=== PATIENT | female | born 1940 | race Caucasian/White ===

== ENCOUNTER 2020-11-06 21:31 | Emergency (ER) | payer MEDICARE ==
[~2020-11-06 21:31] MED LIST: AUGMENTIN 875-1 EACH PO; BACTRIM DS TAB1 EACH PO; BUSPIRONE HCL15 MG PO; CLONAZEPAM 1MG T1 MG PO; CLONAZEPAM0.5 MG PO; COZAAR50 MG PO; ELIQUIS5 MG PO; ESBRIET801 MG PO; FEOSOL325 MG PO; LASIX20 MG PO; LEVAQUIN750 MG PO; LEXAPRO 10MG TA10 MG PO; MACROBID100 MG PO; MEDROL 4MG DOSEP4 MG PO; METFORMIN HCL500 MG PO; NYSTATIN 112 TSP/BTL PO; PREDNISONE 20MG20 MG PO; SPORANOX 100MG100 MG PO; SYNTHROID100 MCG PO
[2020-11-06 22:10] LABS: BASOPHIL 0.7 % (0-2); EOSINOPHIL 4.2 % (0-7); HCT 30.6 % (37.0-47.0); LYMPHOCYTE 19.3 % (15-48); MCH 23.9 pg (25.0-31.0); MCHC 29.4 g/dL (32.0-36.0); MCV 81.2 fL (78.0-100.0); MONOCYTE 8.3 % (0-12); NEUTROPHIL 67.4 % (41-80); NRBC 0; PLT 276 K/uL (150-400); RBC 3.77 M/uL (4.20-5.40); RDW 15.7 % (11.5-14.0); WBC 8.6 K/uL (4.0-10.5)
[2020-11-06 22:26] LABS: ALBUMIN 2.6 g/dL (3.4-5.0); BILIRUBIN - TOTAL 0.2 mg/dL (0.2-1.0); CREATININE 0.41 mg/dL (0.51-0.95); POTASSIUM 3.8 mmol/L (3.5-5.1); TOTAL PROTEIN 6.6 g/dL (6.4-8.2)
[2020-11-06 22:30] LABS: LACTIC ACID 0.8 mmol/L (0.4-1.9)
[2020-11-06 22:56] LABS: CORONAVIRUS 2019 SARS-COV-2 NEGATIVE (NEGATIVE); INFLUENZA A NAA NEGATIVE (NEGATIVE)
== END 2020-11-07 16:40 | disposition other institution (70) ==
LOC: FER 21:31
PROVIDERS: Emergency Medicine
DX: J96.91 Respiratory failure, unspecified with hypoxia (principal); J84.10 Pulmonary fibrosis, unspecified; J44.1 Chronic obstructive pulmonary disease with (acute) exacerbation; Z86.711 Personal history of pulmonary embolism; Z88.5 Allergy status to narcotic agent; Z20.822 Contact with and (suspected) exposure to COVID-19
CPT/HCPCS: 36415; 36600; 71045; 71275; 80053; 82803; 83605; 83880; 84484; 85025; 85379; 93005; 94640; 94664; J2060; J2930; Q9967; U0002

== ENCOUNTER 2020-12-09 17:40 | Emergency (ER) | payer MEDICARE ==
[2020-12-09 18:24] LABS: BASOPHIL 0.4 % (0-2); EOSINOPHIL 1.3 % (0-7); HCT 35.4 % (37.0-47.0); HGB 10.7 g/dl (12.5-16.0); LYMPHOCYTE 22.6 % (15-48); MCH 25.5 pg (25.0-31.0); MCHC 30.2 g/dL (32.0-36.0); MCV 84.5 fL (78.0-100.0); MPV 9.4 fL (6.0-9.5); NEUTROPHIL 68.3 % (41-80); NRBC 0; PLT 190 K/uL (150-400); RBC 4.19 M/uL (4.20-5.40); RDW 23.4 % (11.5-14.0); WBC 7.2 K/uL (4.0-10.5)
[2020-12-09 18:57] LABS: ALBUMIN 2.8 g/dL (3.4-5.0); BILIRUBIN - TOTAL 0.2 mg/dL (0.2-1.0); BUN/CREAT RATIO (CALC) 51.1 RATIO; CREATININE 0.45 mg/dL (0.51-0.95); GLOBULIN (CALCULATION) 3.6 g/dL; POTASSIUM 3.5 mmol/L (3.5-5.1); TOTAL PROTEIN 6.4 g/dL (6.4-8.2)
[2020-12-09 19:54] LABS: BILIRUBIN NEGATIVE (NEGATIVE); BLOOD NEGATIVE Ery/uL (NEGATIVE); CLARITY CLEAR (CLEAR); COLOR YELLOW (YELLOW); GLUCOSE (U) NORMAL (NORMAL); LEUKOCYTES NEGATIVE Leu/uL (NEGATIVE); NITRITE NEGATIVE (NEGATIVE); PROTEIN NEGATIVE (NEGATIVE); UROBILINOGEN 0.2 mg/dL (0.2-1.0)
== END 2020-12-09 20:35 | disposition home or self-care (01) ==
LOC: FER 17:40
PROVIDERS: Emergency Medicine
DX: J84.10 Pulmonary fibrosis, unspecified (principal); R60.0 Localized edema; R00.0 Tachycardia, unspecified; I50.9 Heart failure, unspecified; Z87.09 Personal history of other diseases of the respiratory system; Z88.5 Allergy status to narcotic agent; Z79.899 Other long term (current) drug therapy; Z79.01 Long term (current) use of anticoagulants
CPT/HCPCS: 36415; 36600; 80053; 81003; 82803; 83605; 83880; 84145; 84484; 85025; 87040; 87088; 93005; J1940; J2060

== ENCOUNTER 2021-01-20 02:30 | Inpatient (IN) | payer MEDICARE ==
[2021-01-20 03:11] LABS: INR 1.12 (0.9-1.2); PROTHROMBIN TIME 13.7 SECONDS (11.4-13.6)
[2021-01-20 03:12] LABS: ALBUMIN 2.8 g/dL (3.4-5.0); BILIRUBIN - TOTAL 0.3 mg/dL (0.2-1.0); CREATININE 0.5 mg/dL (0.51-0.95); GLOBULIN (CALCULATION) 4.8 g/dL; PTT 29.7 SECONDS (22.2-34.7); TOTAL PROTEIN 7.6 g/dL (6.4-8.2)
[2021-01-20 03:13] LABS: EOSINOPHIL 6.3 % (0-7); HCT 40.4 % (37.0-47.0); HGB 12.6 g/dl (12.5-16.0); MCH 26.1 pg (25.0-31.0); MCHC 31.2 g/dL (32.0-36.0); MCV 83.6 fL (78.0-100.0); MONOCYTE 6.8 % (0-12); MPV 9.7 fL (6.0-9.5); NEUTROPHIL 63.6 % (41-80); NRBC 0; PLT 331 K/uL (150-400); RBC 4.83 M/uL (4.20-5.40); RDW 21.1 % (11.5-14.0); WBC 10.2 K/uL (4.0-10.5)
--- NOTE | 2021-01-20 05:32 | NUR ---
PATIENT ARRIVED TO FLOOR VIA [facility] FAMILY AT BEDSIDE. BED LOCKED AND IN LOW POSITION. CALL LIGHT IN REACH.
[2021-01-20] MEDS ORDERED: REVATIO 20MG TA20 MG PO (05:46)
[2021-01-20] MEDS ORDERED: COLACE100 MG PO (05:47)
[2021-01-20 06:24] LABS: MAGNESIUM 1.8 mg/dL (1.8-2.4); PHOSPHORUS 3.5 mg/dL (2.6-4.7)
--- NOTE | 2021-01-20 10:31 | NUR ---
01/20/21 Ms. Carvalho lives with her son, Luther Carvalho ([phone]). She is followed by A . Ms. Carvalho has a trilogy, 02, rollator, w/c, 3in1, and hospital bed. Her son prepares meals and manages the household. Her daughter visits the home every other day and assist with bathing. - reports to be unable to afford the inhaler. - Her son, Alfredo Carvalho, reports to be working with [employer] to get a pb to pay the co-payment for the inhaler, Navaso. Mr. Carvalho reports that a FISCAL ANALYST will be coming to the home through [employer] (referred by her insurance).
[2021-01-21 05:56] LABS: BASOPHIL 0.4 % (0-2); EOSINOPHIL 2.1 % (0-7); HCT 35.2 % (37.0-47.0); HGB 10.6 g/dl (12.5-16.0); LYMPHOCYTE 24.3 % (15-48); MCH 25.4 pg (25.0-31.0); MCHC 30.1 g/dL (32.0-36.0); MCV 84.4 fL (78.0-100.0); MONOCYTE 9.3 % (0-12); MPV 9.6 fL (6.0-9.5); NEUTROPHIL 63.6 % (41-80); NRBC 0; PLT 325 K/uL (150-400); RBC 4.17 M/uL (4.20-5.40); RDW 20.5 % (11.5-14.0); WBC 9.5 K/uL (4.0-10.5)
[2021-01-21 07:24] LABS: ALBUMIN 2.5 g/dL (3.4-5.0); BILIRUBIN - TOTAL 0.2 mg/dL (0.2-1.0); BUN/CREAT RATIO (CALC) 29.1 RATIO; CREATININE 0.55 mg/dL (0.51-0.95); GLOBULIN (CALCULATION) 3.8 g/dL; POTASSIUM 4.4 mmol/L (3.5-5.1); TOTAL PROTEIN 6.3 g/dL (6.4-8.2)
--- NOTE | 2021-01-21 12:49 | NUR ---
PT O2 TITRATED DOWN PER MD BY RESPIRATORY, PT DESATTING INTO MID 80S WHILE EATING LUNCH. [facility] THERAPY CALLED AND COMING TO TURN FIO2 BACK UP ON PT VAPOTHERM. PT REMAINS IN AFIB WITH A RATE OF 97.
--- NOTE | 2021-01-22 15:12 | NUR ---
PT ALERT AND ORIENTED, SLEEPING OFF AND ON MOST OF THE DAY. PT MANUALLY TURNED TO EITHER SIDE WHILE RESTING, STATES SHE FEELS WEAK AND DIZZY AT TIMES. PT ABLE TO TURN SELF WHEN SHE IS FEELING MORE AWAKE. REDDENED COCCYX, BARRIER OINTMENT APPLIED.
[2021-01-23 06:31] LABS: BUN/CREAT RATIO (CALC) 35.7 RATIO; CREATININE 0.56 mg/dL (0.51-0.95); POTASSIUM 4.4 mmol/L (3.5-5.1)
[2021-01-23 06:37] LABS: BASOPHIL 0.4 % (0-2); EOSINOPHIL 0.2 % (0-7); HCT 31.2 % (37.0-47.0); HGB 9.6 g/dl (12.5-16.0); LYMPHOCYTE 19.5 % (15-48); MCH 26.1 pg (25.0-31.0); MCHC 30.8 g/dL (32.0-36.0); MCV 84.8 fL (78.0-100.0); MONOCYTE 9.6 % (0-12); MPV 9.8 fL (6.0-9.5); NEUTROPHIL 69.9 % (41-80); NRBC 0; PLT 295 K/uL (150-400); RBC 3.68 M/uL (4.20-5.40); RDW 20.2 % (11.5-14.0); WBC 8.6 K/uL (4.0-10.5)
--- NOTE | 2021-01-23 14:37 | NUR ---
PT. TO D/C HOME. SHE4 IS CURRENT WITH [facility]. SHE HAS A HOSPITAL BED, 12/01 AND TRIOLOGY. PLEASE ADVISE [facility] IF PT. D/C HOME OVER THE WEEKEND.
[2021-01-25 06:37] LABS: BASOPHIL 0.2 % (0-2); EOSINOPHIL 0.8 % (0-7); HCT 32.8 % (37.0-47.0); MCH 25.7 pg (25.0-31.0); MCHC 30.5 g/dL (32.0-36.0); MCV 84.3 fL (78.0-100.0); MONOCYTE 8.9 % (0-12); MPV 9.5 fL (6.0-9.5); NEUTROPHIL 69.7 % (41-80); NRBC 0; PLT 308 K/uL (150-400); RBC 3.89 M/uL (4.20-5.40); RDW 19.7 % (11.5-14.0); WBC 10.2 K/uL (4.0-10.5)
[2021-01-25 06:44] LABS: BUN/CREAT RATIO (CALC) 51.2 RATIO; CREATININE 0.43 mg/dL (0.51-0.95); POTASSIUM 4.3 mmol/L (3.5-5.1)
--- NOTE | 2021-01-26 08:17 | NUR ---
PATIENT WAS SITTING IN BED HF, NO RESPITORY DISTRESS, SAT 97, WILL CONTACT RT TO DECREASE HIGH FLOW TO TRY AND WEAN DOWN
--- NOTE | 2021-01-26 15:41 | NUR ---
01/26/21 Vanessa Hairston, , telephoned. Ms. Hairston identified herself as a nurse and a parishoner of patient's sister's spouse. Ms. Hairston requested as how to advise the sister to assist Ms. Carvalho's son. This social work lecturer advised Ms. Hairston to have the patient's sister to speak directly to the son.
--- NOTE | 2021-01-26 17:26 | NUR ---
PATIENT HAS BECOME VERY UPSET A NUMBER OF TIMES TODAY, FAMILY HAS CALLED AND THE PATIENT HAS BECOME UPSET WITH FAMILY ISSUES. SHE IS VERY ANIOUS AND HAS REQUEST SOMETHING FOR HER NERVES A NUMBER OF TIME. EXPLAINED TO HER THAT SHE HAS KLON[place]IN ORDERED IN AM, PM AND PRNTID. THAT IT WAS NOT TIME FOR MEDICATION TRIED TO HELP HER USE OTHER METHODS TO CALM DOWN.
== END 2021-01-28 02:45 | disposition other institution (70) | DRG 193 ==
LOC: FER 02:30 → FTCU 04:13 → FMS 01-24 08:18
PROVIDERS: Allergy & Immunology Allergy; Emergency Medicine; Nurse Practitioner; ADMIT Internal Medicine
PROC: 5A0945A Assistance with Respiratory Ventilation, 24-96 Consecutive Hours, High Flow/Velocity Cannula (ICD-10-PCS; principal; 2021-01-25)
DX: J18.9 Pneumonia, unspecified organism (principal); J96.21 Acute and chronic respiratory failure with hypoxia; I48.20 Chronic atrial fibrillation, unspecified; J84.10 Pulmonary fibrosis, unspecified; I10 Essential (primary) hypertension; Z20.822 Contact with and (suspected) exposure to COVID-19; F32.9 Major depressive disorder, single episode, unspecified; F41.9 Anxiety disorder, unspecified; E11.9 Type 2 diabetes mellitus without complications; I27.20 Pulmonary hypertension, unspecified; L89.151 Pressure ulcer of sacral region, stage 1; L89.621 Pressure ulcer of left heel, stage 1; L89.611 Pressure ulcer of right heel, stage 1; Z88.0 Allergy status to penicillin; Z90.49 Acquired absence of other specified parts of digestive tract; Z99.81 Dependence on supplemental oxygen; Z90.710 Acquired absence of both cervix and uterus; Z87.442 Personal history of urinary calculi; Z88.5 Allergy status to narcotic agent; Z88.6 Allergy status to analgesic agent
CPT/HCPCS: 36415; 36600; 71045; 80048; 80053; 82803; 82962; 83605; 83735; 83880; 84100; 84145; 84484; 85025; 85610; 85730; 93005; 94010; 94640; 94760; C9113; J0780; J1200; J2060; J2405; J7512; U0002